=== PATIENT | female | born 1960 | race Caucasian/White ===

== ENCOUNTER 2019-01-31 14:27 | Inpatient (IN) | payer OTHER ==
[~2019-01-31] VITALS: Ht 165.1 cm; Wt 39.9 kg
[~2019-01-31 14:27] MED LIST: ACYCLOVIR 400400 M1 PO; ADULT LOW DOSE81 MG PO; ATENOLOL 50 MG50 M1 PO; AUGMENTIN 875875 MG PO; BACLOFEN 10MG T10 M1 PO; CALCIUM PO; DESYREL50 MG PO; DOXYCYCLINE 10100 MG PO; DUONEB 2.5-0.5 M3 ML INH; EVOXAC30 MG PO; FLONASE 0.05%50 MCG NASAL; GABAPENTIN600 MG PO; LEVAQUIN 500 M500 M1 PO; LEVAQUIN 500 M500 M2 PO; MIRALAX17 GM PO; MUCINEX TA600 MG/TA1 PO; MUCUS RELIEF400 MG PO; MULTI-VITAMIN1 EAC1 PO; NABUMETONE PO; NEURONTIN600 MG PO; NEXIUM40 MG PO; NICOTINE TRANSD21 M1 TRANSDERM; NORCO 10-325 T1 EACH PO; NORVASC 5 MG TAB5 MG PO; NORVASC2.5 MG PO; PAROXETINE HCL20 MG PO; PREDNISONE 10 M10 MG PO; PREDNISONE 20 M20 M1 PO; PREDNISONE 20 M20 MG PO; PREDNISONE50 MG PO; PREMARIN0.625 MG PO; PRILOSEC 20 MG20 MG PO; PRILOSEC20 MG PO; PROAIR RESPICL90 MCG IH; PROVENTIL HFA6.7 G1 INH; QUININE PO; SPIRIVA INH; SYMBICORT160 MCG/4. INH; TESSALON PERLE100 MG PO; TRAZODONE HCL100 MG PO; TRIAMTERENE-HC1 EAC1 PO; VENTOLIN HFA 1818 GM INH; VITAMIN B-12500 MC5 PO; VITAMIN B12 5500 MC1 PO; VITAMIN D1000 UNI1 PO; VITAMIN E400 UNI1 PO; VITAMINC500 PO; [UNRECOGNIZED DRUG - OTHER] PO
[2019-01-31 15:32] VITALS: BP 141/63
[2019-01-31 16:28] LABS: HEMOGLOBIN 12.1 gm/dL (12.0-15.0); MCH 31.5 pg (26.0-34.0); MCHC 32.7 g/dL (28.0-37.0); MCV 96.1 fL (80.0-100.0); RBC 3.85 mil/uL (4.20-5.00); RDW 14.1 % (10.5-14.5); WBC 13.2 thou/uL (4.0-11.0)
[2019-01-31 16:42] LABS: ALBUMIN 3.2 g/dL (3.4-5.0); CALCIUM 9.5 mg/dL (8.5-10.1); CREATININE 0.7 mg/dL (0.6-1.0); POTASSIUM 3.9 mmol/L (3.5-5.1); TOTAL BILIRUBIN 0.4 mg/dL (<0.1-1.0); TOTAL PROTEIN 7.6 g/dL (6.4-8.2)
[2019-01-31 16:42] LABS: BE(vivo) 2.3 mmol/L (-2 to +3); HCO3 26.5 mmol/L (22.0-26.0); PCO2 39.7 mmHg (35.0-45.0); PO2 71.9 mmHg (80.0-100.0); pH 7.443 (7.360-7.450); sO2 95.1 % (92.0-98.0)
--- NOTE | 2019-01-31 18:19 | NUR ---
[age] YEAR OLD FEMALE DIRECT ADMIT FROM DR. GODOY DUE TO INSREASE SOB FOR THE PAST WEEK. PT ALERT AND ORIENTED TIMES FOUR. VSS, 98%3L, SR ON TELE. PT DENIES PAIN DURING ASMISSION ASSESSMENT. PT UP WITH STANDBY ASSIST. DAUGHTER AT BEDSIDE. WILL CONTINUE TO MONITOR.
[2019-01-31 20:34] VITALS: BP 122/65
--- NOTE | 2019-02-01 04:04 | NUR ---
Patient making slow progress towards outcome goals. Oxygenation optimal with 3L NC (patients baseline at home). Cough non productive. Up to BSC x 1 assist. Chronic pain r/t neuropathy, Hydrocodone with some relief. Low fall risks, calls out appropriate for needs. Refused SCD's on Lovenox.
[2019-02-01 04:29] VITALS: BP 132/73
[2019-02-01 08:17] VITALS: BP 121/66
--- NOTE | 2019-02-01 10:06 | H ---
[facility] [place] [place] [address] HISTORY AND PHYSICAL Name: BHARATHI HUSSEIN Room #: 356-P ADM IN M.R.#: [id number] Admission: 01/31/19 Attend Phys: Jayshree Dwyer Discharge: Date of : 60 Report #: [id number] THIS REPORT FOR: //name// CC: Brain Nettles DATE OF SERVICE: 01/31/2019 ATTENDING: Dr. Nettles. CHIEF COMPLAINT: Shortness of breath. HISTORY OF PRESENT ILLNESS: The patient is a 58-year-old female with a history of O2 and steroid dependent COPD, who was admitted through the office today with progressive shortness of breath. She said for the last week to 10 days she has had increasing shortness of breath, is not improved with additional nebulized treatment. She has had a coarse cough at times, but has been nonproductive of sputum. She denies any fever or chills. She received a flu shot 2 weeks ago and had some myalgias and malaise from that, but that seemed to pass, but now has had progressive shortness of breath. PAST MEDICAL HISTORY: COPD, polyneuropathy, hypertension. PAST SURGICAL HISTORY: Unknown. FAMILY HISTORY: Noncontributory. SOCIAL HISTORY: A 89-rjce-xhox history of smoking, but quit. ALLERGIES: None. MEDICATIONS: DuoNeb, Norvasc, aspirin, hydrocodone, gabapentin, trazodone, Symbicort, Mucinex, Flonase, Nexium, prednisone, atenolol, baclofen, multivitamin. REVIEW OF SYSTEMS: She denies any headache, chest pain, abdominal pain, fever, chills, nausea, vomiting, diarrhea, constipation, dysuria, syncope. OBJECTIVE: VITAL SIGNS: Per the nursing note include temperature 36.9, pulse 92, respirations 24, blood pressure 141/63, O2 sat 99% on 3 liters portable oxygen with constant conserver. GENERAL: She is a thin female who is awake and alert, oriented to place and situation. HEAD AND NECK: Unremarkable. LUNGS: Distant breath sounds. She has a tight wheezing cough with some scattered rhonchi nonproductive. [facility] [address] [place] [address] HISTORY AND PHYSICAL Name: BHARATHI HUSSEIN Room #: 356-P ADM IN M.R.#: [id number] Admission: 01/31/19 Attend Phys: Jayshree Dwyer Discharge: Date of : 60 Report #: [id number] HEART: Regular, no murmur. ABDOMEN: Soft, normoactive bowel sounds. EXTREMITIES: No edema. NEUROLOGIC: She is oriented x 4. Cranial nerves, motor strength intact. She has muscle atrophy. ASSESSMENT: 1. Chronic obstructive pulmonary disease exacerbation. 2. Polyneuropathy on chronic pain medicine. 3. Hypertension. PLAN: Lab and x-ray have been ordered along with IV antibiotics, IV steroids, and nebulized treatments, respiratory therapy and I have asked Dr. Barakat to see her in consultation. Home medicines to continue and Lovenox for DVT prophylaxis. <ELECTRONICALLY SIGNED> By: Jose Martin Peterson MD 02/01/19 1006 [id number] Jose Martin Peterson MD /nt
[2019-02-01 16:03] VITALS: BP 125/62
--- NOTE | 2019-02-01 18:29 | NUR ---
Patient advised nursing her IV was hurting. Her IV site was assessed and her infusion rate was slowed. Patient reported the IV site hurt when flushed, not when fluids were infusing.
[2019-02-01 20:05] VITALS: BP 140/64
--- NOTE | 2019-02-02 04:23 | NUR ---
Patient making slow progress towards outcome goals. Better chronic pain control with Hydrocodone doses as per at home. Oxygenation optimal at 3L/NC. Cough still mostly non productive, on vest therapy. Low fall risks. Gait steady, uses call light appropriately for needs.
[2019-02-02 08:07] LABS: ANTI-DNA SCREEN <1 IU/mL (0-9); ANTI-RNP <0.2 AI (0.0-0.9)
[2019-02-02 08:42] VITALS: BP 127/65
[2019-02-02 12:32] VITALS: BP 140/73
--- NOTE | 2019-02-02 15:35 | NUR ---
ASSESSMENT: CM REVIEWED CHART AND MET WITH PATIENT AT THE BEDSIDE. PT WAS ADMITTED WITH COPD EXACERBATION. PT REPORTS SHE LIVES IN AN APT ALONE. PT REPORTS NO STEPS TO ENTER OR ONCE INSIDE. PT STATES SHE AMBULATES INDEPENDENTLY AND IS INDEPENDENT WITH ADLS. PT REPORTS SHE WEARS 3L CONTINUOUS OXYGEN AT HOME SUPPLIED THROUGH [facility] AND ALSO HAS A NEBULIZER. PT REPORTS HER DAUGHTER LIVES CLOSE AND IS SUPPORTIVE. PT REPORTS SHE HAS NOT HAD HH OR BEEN TO SNF. CM DISCUSSED ROLE. PT DOES NOT ANTICIPATE HAVING ANY NEEDS AT DISCHARGE. CM WILL CONTINUE TO FOLLOW TO ASSIST NEEDED.
[2019-02-02 16:06] VITALS: BP 130/68
--- NOTE | 2019-02-02 18:44 | NUR ---
PATIEN IS ALERT ORIENTED X4. DOES NOT SEEM TO BE IN DISTRESS. RESTING IN BED AT THIS TIME. NO COMPLAIN. WILL CONT WITH PLAN OF CARE.
[2019-02-02 19:35] VITALS: BP 132/62
[2019-02-03 02:53] VITALS: BP 143/64
--- NOTE | 2019-02-03 07:38 | NUR ---
PT MAKING PROGRESS TOWARDS GOALS. ON O2 AT 3L PER NC THROUGHOUT THE NIGHT. NO REPORTS OF ANY SOA WHILE AT REST. UP AD GRICELDA TO TOILET. NO REPORTS OF ANY SIGNIFICANT SOA WITH AMBULATION.
[2019-02-03 08:23] VITALS: BP 144/67
[2019-02-03 16:17] VITALS: BP 150/87
[2019-02-03 19:41] VITALS: BP 147/81
--- NOTE | 2019-02-03 20:20 | NUR ---
PATIENT MAKING PROGRESS TOWARDS GOALS/PLAN OF CARE OF MAINTAINING OXYGENATION, DECREASED ANXIETY, AND EASE WORK OF BREATHING.
--- NOTE | 2019-02-04 04:05 | NUR ---
PT WAS TRANSFERRED FROM AROUND 2300. AXOX4. GAIT STEADY WITH BATHROOM PREVILAGES. NO S/S ACUTE DISTRESS NOTED OR REPORTED AT THIS TIME. WILL CONT TO MONITOR FOR ANY CHANGES IN CONDITION.
[2019-02-04 04:50] VITALS: BP 141/85
[2019-02-04 07:41] VITALS: BP 132/66
[2019-02-04 11:26] VITALS: BP 129/65
[2019-02-04 15:29] VITALS: BP 146/72
--- NOTE | 2019-02-04 18:27 | NUR ---
ASSUMED CARE 0700, A/OX4, PAIN MANAGED WITH MEDICATIONS. BASELINE 3L OXYGEN, SMOKER, UP AB GRICELDA, CONTINUES ON BREATHING TREATMENTS. LIKELY TO DC TUESDAY OR TUESDAY. PROGRESSING TOWARDS GOALS.
[2019-02-04 19:09] VITALS: BP 150/74
[2019-02-05 03:29] VITALS: BP 135/53
--- NOTE | 2019-02-05 03:39 | NUR ---
PT ASSUMED AT 1910 WITH PT IN BED.PT IS A/O X4.PT COMPLAINT ON ITCHING AND ITCHING ON FEET WAS RELIEVED BY BARRIER CREAM.DR GODOY WAS PAGED WITH NO RESPONSE.PT REQUESTED TRAZODONE TO BE GIVEN AT 23:30 .PT IS ON O2/3L/NC.PT IS UP AD GRICELDA.CONTINUE POC TILL EOS.
[2019-02-05 20:20] VITALS: BP 146/86
--- NOTE | 2019-02-06 01:44 | NUR ---
PATIENT AOX4 MAKES NEEDS KNOWN. PATIENT IS UP AT GRICELDA. PATIENT AMBULATES TO THE BATHROOM WITH STEADY GAITS. PATIENT ON 3.0 L OF OXYGEN, NO SHORTNESS OF AIR OR DISTRESS NOTED AT THIS TIME. CALL LIGHT AND PERSONAL ITEMS WITHIN REACH. PAIN CONTROLLED THIS SHIFT. CALL LIGHT AND PERSONAL ITEMS WITHIN REACH.PATIENT IN BED ASLEEP AT THIS TIME BREATHING REGULAR AND UNLABOURED.
[2019-02-06 04:32] VITALS: BP 163/85
[2019-02-06 06:06] LABS: ADENOVIRUS Negative (Negative); INFLUENZA A Negative (Negative); INFLUENZA B Negative (Negative); METAPNEUMOVIRUS Negative (Negative); PARAINFLUENZA 1 Negative (Negative); PARAINFLUENZA 2 Negative (Negative); PARAINFLUENZA 3 Negative (Negative); RHINOVIRUS Negative (Negative); RSV A Negative (Negative); RSV B Negative (Negative)
[2019-02-06 07:14] LABS: HEMATOCRIT 36.2 % (37.0-47.0); MCH 31.6 pg (26.0-34.0); MCHC 33.3 g/dL (28.0-37.0); MCV 95.1 fL (80.0-100.0); PLATELET COUNT 408 thou/uL (150-400); RBC 3.81 mil/uL (4.20-5.00); RDW 14.2 % (10.5-14.5); WBC 12.9 thou/uL (4.0-11.0)
[2019-02-06 07:31] LABS: ALBUMIN 2.4 g/dL (3.4-5.0); CALCIUM 8.5 mg/dL (8.5-10.1); CREATININE 0.7 mg/dL (0.6-1.0); POTASSIUM 3.1 mmol/L (3.5-5.1); TOTAL BILIRUBIN 0.2 mg/dL (<0.1-1.0); TOTAL PROTEIN 5.7 g/dL (6.4-8.2)
[2019-02-06 07:51] VITALS: BP 143/72
[2019-02-06 08:27] LABS: BE(vivo) 5.1 mmol/L (-2 to +3); HCO3 30.8 mmol/L (22.0-26.0); PCO2 49.7 mmHg (35.0-45.0); PO2 109.7 mmHg (80.0-100.0)
[2019-02-06 09:20] LABS: ABSOLUTE NEUTROPHILS 9.9 thou/uL (1.4-8.2); PLATELET ESTIMATE NORMAL
[2019-02-06 09:58] VITALS: BP 143/72
--- NOTE | 2019-02-06 10:52 | NUR ---
CALLED DR. SPARROW OFFICE AND LEFT MESSAGE WITH BALDEV AT 1051 ABOUT HIGH LAB VALUE
--- NOTE | 2019-02-06 11:12 | NUR ---
INFORMED ABOUT HIGH LAB VALUES AND NEW CONFUSION AT 1114. HE RESPONDED HE WILL CHECK ON HER LATER WHEN HE ROUNDS
[2019-02-06] MEDS ORDERED: MUCINEX600 MG PO (13:18)
[2019-02-06] MEDS ORDERED: PREDNISONE 10 M10 M1 PO (13:20)
[2019-02-06] MEDS ORDERED: CEFDINIR300 MG PO (13:20)
[2019-02-06] MEDS ORDERED: ATIVAN0.5 M1 PO (13:21)
[2019-02-06 14:58] VITALS: BP 145/72
--- NOTE | 2019-02-06 16:21 | NUR ---
PHYSICAIN INDICATED THAT PT IS MEDICALLY STABLE TO DC HOME WITH NO NEEDS THIS DAY. NO OTHER CM INTERVENTION INDICATED. CASE CLOSED.
[2019-02-06 19:06] VITALS: BP 145/72
--- NOTE | 2019-02-06 20:22 | NUR ---
PT DEPARTED FROM ROOM 459. DTR P/U. IV REMOVED. ALL QUESTIONS ANSWERED AND ALL BELONGINGS SENT WITH THE PT. PORTABLE O2 MACHINE WAS BROUGHT IN WITH THE DTR. NO S/S ACUTE DISTRESS NOTED OR REPORTED AT THIS TIME. WILL CONT TO MONITOR FOR ANY CHANGES IN CONDITION.
[2019-02-07] MEDS ORDERED: BACLOFEN 10MG T10 MG PO (17:37)
--- NOTE | 2019-02-19 17:20 | PFR/MVV ---
[facility] [place] [place] [address] PULMONARY FUNCTION MVV/REPORT Name: JOVITABHARATHI MCDOWELL Room #: 459-P [facility] IN M.R.#: [id number] Admission: 01/31/19 Attend Phys: Brain Nettles MD Discharge: 02/06/19 Date of : 60 Report #: [id number] THIS REPORT FOR: //name// >> SPIROMETRY: (BTPS) Height: 65 in cm Weight: 88 lbs kg Exam Date: 02/02/19 PRE-RX POST-RX PRED BEST %PRED BEST %PRED %CHG FVC LITERS . 3.48 . 2.64 . 76 . 2.41 . 69 . -9 FEV1 LITERS . 2.77 . 0.77 . 29 . 0.75 . 28 . -3 FEV1/FVC % . 78 . 29 . 37 . 31 . 40 . 7 KSQ07-10% L/Sec . 2.49 . 0.25 . 10 . 0.28 . 1 . 12 PEF L/SEC . 6.5 . 1.70 . 26 . 1.64 . 25 . -4 FEF50/FIF50 UNITLESS . . . . . . MVV L/Min . . . f 1/Min . . . >> LUNG VOLUMES: (BTPS) PRE-RX POST-RX PRED AVG %PRED AVG %PRED %CHG VC Liters . . . . . . TLC Liters . . . . . . RV Liters . . . . . . RV/TLC % . . . . . . FRC PL Liters . . . . . . FRC N2 Liters . . . . . . ERV Liters . . . . . . IC Liters . . . . . . >> DIFFUSION: DLCO ml/Min/mmHg . . . . . . DL Dotty ml/Min/mmHg . . . . . . DLCO/VA ml/Min/mmHg . . . . . . VA Liters . . . . . . COMMENTS: COMMENTS: >> RESISTANCE: [facility] [address] [place] [address] PULMONARY FUNCTION MVV/REPORT Name: BHARATHI HUSSEIN Room #: 459-P DIS IN M.R.#: [id number] Admission: 01/31/19 Attend Phys: Brain Nettles MD Discharge: 02/06/19 Date of : 60 Report #: [id number] PRE-RX PRED AVG %PRED Raw Total cmH20/L/Sec . . . Raw Insp cmH20/L/Sec . . . Raw Exp cmH20/L/Sec . . . Raw cmH20/L/Sec . . . Gaw L/Sec/cmH20 . . . sRaw cmH20 Sec . . . sGaw l/cmH20 Sec . . . Vtq Liters . . . # = OUTSIDE 95% CONFIDENCE INTERVAL CALIBRATION: PRED: 3.00 ACTUAL: EXP 3.01 INSP 3.02 [facility]-06 [facility]-05 N-1804-4 >> INTERPRETATION/IMPRESSION: CC: BRAIN Nettles SPIROMETRIC EXAMINATION Spirometric examination revealed very severe airflow obstruction. Clinical correlation is recommended. <ELECTRONICALLY SIGNED> By: Michael Barakat MD 02/19/19 1720 Michael Barakat MD /nt
== END 2019-02-06 20:24 | disposition home or self-care (01) | DRG 189 ==
LOC: 3W 14:27 → 4W 14:27 → 3W 15:31 → 4W 02-03 22:44
PROVIDERS: Internal Medicine Geriatric Medicine; Pediatrics; ADMIT Internal Medicine
DX: J96.21 Acute and chronic respiratory failure with hypoxia (principal); Z68.1 Body mass index [BMI] 19.9 or less, adult; J44.1 Chronic obstructive pulmonary disease with (acute) exacerbation; J96.22 Acute and chronic respiratory failure with hypercapnia; I10 Essential (primary) hypertension; G62.9 Polyneuropathy, unspecified; Z60.2 Problems related to living alone; R63.4 Abnormal weight loss; G72.9 Myopathy, unspecified; J43.9 Emphysema, unspecified; J84.10 Pulmonary fibrosis, unspecified; F41.9 Anxiety disorder, unspecified; Z99.81 Dependence on supplemental oxygen; Z79.51 Long term (current) use of inhaled steroids; Z87.891 Personal history of nicotine dependence; Z79.899 Other long term (current) drug therapy; Z79.82 Long term (current) use of aspirin; Z23 Encounter for immunization
CPT/HCPCS: 10047; 10879

== ENCOUNTER 2019-02-07 12:15 | Inpatient (IN) | payer OTHER ==
[~2019-02-07] VITALS: Ht 165.1 cm; Wt 42.2 kg
[~2019-02-07 12:15] MED LIST changes: +ATIVAN0.5 M1 PO; +CEFDINIR300 MG PO; +MUCINEX600 MG PO; +PREDNISONE 10 M10 M1 PO
[2019-02-07 13:26] VITALS: BP 158/93
[2019-02-07 13:49] LABS: HEMATOCRIT 39.8 % (37.0-47.0); HEMOGLOBIN 13.2 gm/dL (12.0-15.0); MCH 31.5 pg (26.0-34.0); MCHC 33.3 g/dL (28.0-37.0); MCV 94.6 fL (80.0-100.0); PLATELET COUNT 382 thou/uL (150-400); RDW 14.1 % (10.5-14.5); WBC 13.4 thou/uL (4.0-11.0)
[2019-02-07 13:58] LABS: ANION GAP 4 mmol/L (7-16); BUN 14 mg/dL (7-18); CALCIUM 8.6 mg/dL (8.5-10.1); CHLORIDE 94 mmol/L (98-107); CO2 34 mmol/L (21-32); CREATININE 0.6 mg/dL (0.6-1.0); GLUCOSE 89 mg/dL (74-106); POTASSIUM 3.2 mmol/L (3.5-5.1); SODIUM 132 mmol/L (136-145)
[2019-02-07 14:09] LABS: ALBUMIN 3.2 g/dL (3.4-5.0); SGOT 27 U/L (15-37); SGPT 93 U/L (30-65); TOTAL BILIRUBIN 0.4 mg/dL (<0.1-1.0); TOTAL PROTEIN 6.8 g/dL (6.4-8.2); TROPONIN-I <0.06 ng/mL (<0.06)
[2019-02-07 14:17] LABS: ABSOLUTE NEUTROPHILS 9.5 thou/uL (1.4-8.2)
[2019-02-07 14:48] LABS: BE(vivo) 4.1 mmol/L (-2 to +3); HCO3 28.4 mmol/L (22.0-26.0); PCO2 41.6 mmHg (35.0-45.0); PO2 76.7 mmHg (80.0-100.0); pH 7.452 (7.360-7.450); sO2 95.9 % (92.0-98.0)
[2019-02-07 16:23] VITALS: BP 161/89
[2019-02-07 16:27] VITALS: BP 161/89
[2019-02-07 17:01] VITALS: BP 147/91
[2019-02-07] MEDS ORDERED: BACLOFEN 10MG T10 MG PO (17:37)
--- NOTE | 2019-02-07 18:44 | NUR ---
ADMITTED PATIENT TO FLOOR AROUND APPROXIMATELY 1715. PATIENT ADMITTED WITH COPD EXACERBATION. CURRENTLY ON 3 L NC, WHICH IS HER BASELINE. PATIENT HAD JUST BEEN DISCHARGED FROM OUR FACILITY BUT RETURNED DUE TO SHORTNESS OF BREATH. ORDERS RECIEVED FROM PHYSICIAN AND PASSED ON TO [employer] NURSE. PATIENT EDUCATED ON FALL PRECAUTIONS AND CALL LIGHT USAGE. VSS. CONTINUING TO MONITOR.
[2019-02-07 19:30] VITALS: BP 139/91
[2019-02-08 04:00] VITALS: BP 125/70
--- NOTE | 2019-02-08 04:19 | NUR ---
PATIENT WAS A NEW ADMIT TO THE UNIT YESTERDAY. SHE IS ADVANCING SLOWLY IN HER CARE PLAN. VITAL SIGNS STABLE WITH PATIENT HAVING NO COMPLAINTS OF NAUSEA. PATIENT DID COMPLAIN OF CHRONIC PAIN IN FEET AND HANDS WHICH WAS TREATED APPROPRIATELY THROUGH MEDICATION. FULLY ORIENTED, PATIENT IS ABLE TO CALL APPROPRIATELY FOR NEEDS AND PARTICIPATE IN CARE. BREATHING STABLE ON HOME DOSE OXYGEN EVIDENCE BY ASSESSMENT AND SPOT OXYGENATION CHECKS. UP MULTIPLE TIMES TO BATHROOM WITH ASSISTANCE INCIDENT FREE. PATIENT IS EXPERIENCING DIARRHEA. CONTINUE PLAN OF CARE.
[2019-02-08 05:20] LABS: ABSOLUTE NEUTROPHILS 8.4 thou/uL (1.4-8.2); BASOPHILS 0.2 % (0.0-2.0); HEMATOCRIT 39.8 % (37.0-47.0); LYMPHOCYTES 6.5 % (24.0-44.0); MCH 31.3 pg (26.0-34.0); MCHC 32.6 g/dL (28.0-37.0); MCV 95.9 fL (80.0-100.0); MONOCYTES 3.2 % (1.0-8.0); PLATELET COUNT 363 thou/uL (150-400); POLYS 90.1 % (36.0-66.0); RBC 4.15 mil/uL (4.20-5.00); RDW 14.3 % (10.5-14.5); WBC 9.3 thou/uL (4.0-11.0)
[2019-02-08 05:36] LABS: CALCIUM 8.7 mg/dL (8.5-10.1); CREATININE 0.5 mg/dL (0.6-1.0); TOTAL BILIRUBIN 0.5 mg/dL (<0.1-1.0); TOTAL PROTEIN 6.1 g/dL (6.4-8.2)
[2019-02-08 05:49] LABS: POTASSIUM 4.4 mmol/L (3.5-5.1)
[2019-02-08 07:14] VITALS: BP 143/79
--- NOTE | 2019-02-08 07:49 | EKG ---
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 : 1960 Requested By: Radha Ramirez Order Number: [id number] MD: Devante Ang Measurements Intervals [place] Rate: 66 P: 82 SC: 112 QRS: 69 QRSD: 91 T: 64 QT: 416 QTc: 436 Interpretive Statements Sinus rhythm Borderline short SC interval Probable left atrial enlargement Minimal ST depression, inferior leads Baseline wander in lead(s) II,III,aVL,aVF Compared to ECG 02/02/2018 13:16:26 No significant changes Electronically Signed On 02-08-2019 7:49:33 CDT by Devante Ang [email or web address] <ELECTRONICALLY SIGNED> By: Devante Ang MD 02/08/19 0749 1449 1449 Devante Ang MD /EPI
[2019-02-08 08:40] LABS: BE(vivo) 3.3 mmol/L (-2 to +3); HCO3 27.3 mmol/L (22.0-26.0); PCO2 39.7 mmHg (35.0-45.0); PO2 94.8 mmHg (80.0-100.0); pH 7.456 (7.360-7.450); sO2 97.6 % (92.0-98.0)
[2019-02-08 10:53] VITALS: BP 153/77
--- NOTE | 2019-02-08 11:00 | NUR ---
ID nurse here. states pt already had measles and she is taking her out of airbourne precautions. Dr. Doe student also states pt does not need negative airflow. pt now in contact precautions as well.
--- NOTE | 2019-02-08 11:16 | D ---
[facility] [place] [address] [place] [address] DISCHARGE SUMMARY Name: BHARATHI HUSSEIN Room #: 358-P ADM IN M.R.#: [id number] Admission: 02/07/19 Attend Phys: Jose Martin Peterson MD Discharge: Date of : 60 Report #: [id number] THIS REPORT FOR: //name// CC: Brain Ramirez FINAL DIAGNOSIS: Chronic obstructive pulmonary disease exacerbation. HOSPITAL COURSE: The patient was admitted with shortness of breath. She was diagnosed and treated for a COPD exacerbation. Dr. Weston saw her in consultation. She was treated with nebulized, inhaled treatments, flutter valve, IV steroids, and IV antibiotics. She made slow and steady progress during the course of her stay. She ultimately was weaned back to her baseline 3 liters nasal cannula oxygen. She had no other interval complications and her other home medications for her chronic pain condition and neuropathy were continued. DISPOSITION: To be discharged to home with oxygen at 3 liters. Resume all home medications. Prednisone 40 mg twice a day with a taper, Mucinex, Omnicef 300 mg b.i.d. for a week, and follow up with Dr. Netltes in 1 week. <ELECTRONICALLY SIGNED> By: Jose Martin Peterson MD 02/08/19 1116 1313 1319 Jose Martin Peterson MD /nt
--- NOTE | 2019-02-08 12:59 | H ---
[facility] [place] [address] [place] [address] HISTORY AND PHYSICAL Name: BHARATHI HUSSEIN Room #: 358-P ADM IN M.R.#: [id number] Admission: 02/07/19 Attend Phys: Jose Martin Peterson MD Discharge: Date of : 60 Report #: [id number] THIS REPORT FOR: //name// CC: Brain Peterson CHIEF COMPLAINT: Shortness of breath. HISTORY OF PRESENT ILLNESS: The patient is a 58-year-old female with a history of COPD, who was readmitted to the hospital after failing at home due to shortness of breath. She was hospitalized for about a week for COPD exacerbation with steroids, antibiotics and respiratory treatments. She was just discharged home the other night, but called yesterday morning things she could not breathe with short of breath and was redirected to the Emergency Room. PAST MEDICAL HISTORY: COPD, peripheral neuropathy, chronic pain, cor pulmonale, herpes simplex. PAST SURGICAL HISTORY: . FAMILY HISTORY: Noncontributory. SOCIAL HISTORY: She was living at home. She got a 44-phka-joat history of smoking. Denies chronic alcohol use. ALLERGIES: None. MEDICATIONS: Mucinex, Omnicef, Nexium, DuoNeb, Norvasc, baclofen, trazodone, Neurontin, Symbicort, albuterol, atenolol, multivitamin, aspirin. REVIEW OF SYSTEMS: She complains of shortness of breath and nonproductive cough. No headache, chest pain, abdominal pain, nausea, vomiting, diarrhea, constipation, dysuria, syncope. OBJECTIVE: VITAL SIGNS: Temperature 36.7, pulse 89, respirations 16, blood pressure 153/77, O2 sat 99% on 3 liters. GENERAL: She is awake and alert, in no distress. HEAD AND NECK: Unremarkable. LUNGS: Have rhonchi throughout. HEART: Regular. ABDOMEN: Soft, normoactive bowel sounds. EXTREMITIES: No edema. NEUROLOGIC: Motor strength 3-4/5 throughout. She has muscle atrophy and wasting throughout. LABORATORY REVIEW: A pH 7.45, pCO2 of 39, pO2 of 94 on 3 liters. White count [facility] [address] [place] [address] HISTORY AND PHYSICAL Name: BHARATHI HUSSEIN Room #: 358-P ADM IN M.R.#: [id number] Admission: 02/07/19 Attend Phys: Jose Martin Peterson MD Discharge: Date of : 60 Report #: [id number] normal. Chemistry unremarkable. ASSESSMENT: 1. Chronic obstructive pulmonary disease exacerbation. 2. Hypertension. 3. Peripheral neuropathy. 4. Chronic pain syndrome. PLAN: I will resume IV treatment and have the pulmonary team assessed her and she may need prolonged post-hospital stay for IV therapy and pulmonary toilet to stabilize her symptoms since she failed at home. <ELECTRONICALLY SIGNED> By: Jose Martin Peterson MD 02/08/19 1259 1119 1135 Jose Martin Peterson MD /madhuri
--- NOTE | 2019-02-08 13:56 | NUR ---
INITIAL ASSESSMENT: MELISSA reviewed chart and spoke with nursing and attending physician. Pt was admitted from home due to COPD exacerbation. Pt was recently hospitalized at [facility] and discharged home on 02/06. Requested for eval for [facility] by attending physician. MELISSA met with pt at bedside. Introduced role of SW. Pt is alert/orientated x 4. Pt reports she lives at home alone. Prior to admission, pt was independent with ADLs. Pt has a cane and walker at home, but does not use them. Pt has home O2 in place through [facility]. Pt is normally on 3L continuously. No hx of services or post-acute placement. Pt's PCP is Dr. Enrique Nettles. SW discussed post-acute placement at [facility] for continued medical mgmt. Pt is agreeable with evaluation. train planner to fax referral to [facility]. SW notified [facility] liaison of new referral. MELISSA is following to assist as needed with discharge planning.
--- NOTE | 2019-02-08 14:21 | NUR ---
DISCHARGE PLANNING. LTAC RECOMMENDED FOR PATIENT AT DISCHARGE. REFERRAL FAXED TO [facility] LIA[facility] FOR PATIENTS DISCHARGE NEEDS. CALL PLACED TO KAYLEE TO NOTIFY. KAYLEE TO REVIEW REFERRAL AND CONTACT CM ONCE REVIEW COMPLETED. FOLLOWING.
[2019-02-08 16:02] VITALS: BP 157/70
[2019-02-08 19:07] VITALS: BP 135/71
[2019-02-09 03:00] VITALS: BP 142/82
--- NOTE | 2019-02-09 04:16 | NUR ---
ASSUMED CARE OF PATIENT AT 1900. VSS, AFEBRILE. C/O CHRONIC PAIN. SCHEDULED MEDS GIVEN, RESTING QUIETLY THROUGH THE NIGHT. CALLS OUT APPROPRIATELY. WORKING TOWARDS POC GOALS.
[2019-02-09 11:12] VITALS: BP 145/77
[2019-02-09] MEDS ORDERED: ENOXAPARIN30 MG/0.1 SUBQ (12:00)
[2019-02-09] MEDS ORDERED: ROCEPHIN 11 GM/1001 IV (12:00)
[2019-02-09] MEDS ORDERED: PULMICORT0.5 MG/21 INH (12:00)
[2019-02-09] MEDS ORDERED: MUCINEX600 MG PO (12:00)
[2019-02-09] MEDS ORDERED: SOLU-MEDRO40 MG/1 M2 IV (12:00)
[2019-02-09] MEDS ORDERED: AZITHROMYCIN500 MG PO (12:00)
[2019-02-09] MEDS ORDERED: ACETYLCYST200 MG/1 M INH (12:00)
[2019-02-09] MEDS ORDERED: NORCO 10-325 T1 EACH PO (12:00)
--- NOTE | 2019-02-09 14:27 | NUR ---
MELISSA reviewed chart and spoke with nursing and attending physician. [facility] is able to accept pt tomorrow. Discharge orders/summary completed today with anticipation of discharge tomorrow. production planner scheduler to fax to [facility]. MELISSA updated [facility] liaison, who confirmed they are able to accept pt tomorrow. Pt is able to be transported via w/c with O2. MELISSA met with pt, dtr and [id number] at bedside to discuss discharge plan. All are aware and agreeable with discharge plan. SW answered questions about eventual discharge needs. Pt's dtr has been looking for a new place for pt to live--a [facility]. Pt has [place]-Medicaid as a secondary insurance and is interested in having her dtr be her paid caregiver. MELISSA explained that pt will need to be evaluated to determine her needs. Pt and family verbalized understanding. Chart copy ordered. Nursing will need to call report prior to discharge. SW is available to assist should needs arise.
--- NOTE | 2019-02-09 14:31 | NUR ---
ORDERS RECEIVED FOR EVAL AND TREAT. SPOKE TO Pt WHO STATES SHE IS GETTING UP ON HER OWN WITHOUT DIFFICULTY AND DENIES ANY ISSUES WITH STRENGTH, BALANCE OR MOBILITY. Pt DECLINING FORMAL P.T. EVAL AT THIS TIME. Pt TENTATIVELY DISCHARGING TOMORROW TO LTAC.
[2019-02-09 15:21] VITALS: BP 164/81
--- NOTE | 2019-02-09 15:39 | NUR ---
Assumed care approx. 0700 this AM. ON 3LNC (BASELINE). Pt still on IV steroids and abx. Family at bedside this afternoon with questions and concerns-this RN spoke with family as did case managment. Plans for patient to go to [facility] tomorrow. Number for report given to this RN. Will pass off to restaurant shift supervisor RN. Patient progressing towards plan of care.
[2019-02-09 19:40] VITALS: BP 160/85
[2019-02-10 04:15] VITALS: BP 160/85
--- NOTE | 2019-02-10 06:20 | NUR ---
Pt. slept fair during the night. Scheduled pain med given with good relief. O2 at 3L/NC and verbalized shortness of breath with exertion. Up ad teresita in room with steady gait. Progressing towards care plan goals.
[2019-02-10 07:23] VITALS: BP 160/88
[2019-02-10 11:15] VITALS: BP 168/104
--- NOTE | 2019-02-10 13:29 | NUR ---
PATIENT DISCHARGED THIS TIME TO [facility]. SHE IS ALERT ORIENTED X4. HAD A SHOWER. CONT ON OXYGEN AND O2 SATS REMAINED ABOVE 90%.
[2019-02-11 22:06] LABS: ADENOVIRUS Negative (Negative); INFLUENZA A Negative (Negative); INFLUENZA B Negative (Negative); METAPNEUMOVIRUS Negative (Negative); PARAINFLUENZA 1 Negative (Negative); PARAINFLUENZA 2 Negative (Negative); PARAINFLUENZA 3 Negative (Negative); RHINOVIRUS Negative (Negative); RSV A Negative (Negative); RSV B Negative (Negative)
--- NOTE | 2019-02-13 12:55 | D ---
[facility] [place] [address] [place] [address] DISCHARGE SUMMARY Name: BHARATHI HUSSEIN Room #: 358-P [facility] IN M.R.#: [id number] Admission: 02/07/19 Attend Phys: Jose Martin Peterson MD Discharge: 02/10/19 Date of : 60 Report #: [id number] THIS REPORT FOR: //name// CC: Brain Peterson DATE OF SERVICE: 02/10/2019 FINAL DIAGNOSIS: Chronic obstructive pulmonary disease exacerbation. HOSPITAL COURSE: The patient was admitted with shortness of breath. She was continued on COPD exacerbation treatment with steroids, antibiotics, nebulized treatments and pulmonary assessment. Viral respiratory panel was sent off, was negative including flu A and B. She was medically stabilized and planned for LTAC level of care as she had failed outpatient treatment. DISPOSITION: She will be transferred to [facility] facility under the care of Dr. Nettles. I have signed and prepared all of her transfer orders. Diet and activity as tolerated. She will continue pulmonary care. <ELECTRONICALLY SIGNED> By: Jose Martin Peterson MD 02/13/19 1255 1244 1306 Jose Martin Peterson MD /nt
--- NOTE | 2019-02-19 17:20 | PFR/MVV ---
[facility] [place] [place] [address] PULMONARY FUNCTION MVV/REPORT Name: BHARATHI HUSSEIN Room #: 358-P [facility] IN M.R.#: [id number] Admission: 02/07/19 Attend Phys: Jose Martin Peterson MD Discharge: 02/10/19 Date of : 60 Report #: [id number] THIS REPORT FOR: //name// >> SPIROMETRY: (BTPS) Height: 65 in cm Weight: 88 lbs kg Exam Date: 02/08/19 PRE-RX POST-RX PRED BEST %PRED BEST %PRED %CHG FVC LITERS . 3.24 . 3.07 . 9 . 2.99 . 92 . -3 FEV1 LITERS . 2.51 . 0.84 . 33 . 0.92 . 37 . 10 FEV1/FVC % . 78 . 27 . 3 . 31 . 39 . 12 AUD30-48% L/Sec . 2.38 . 0.24 . 10 . 0.31 . 13 . 29 PEF L/SEC . 6.24 . 2.09 . 33 . 1.58 . 25 . -24 FEF50/FIF50 UNITLESS . . . . . . MVV L/Min . . . f 1/Min . . . >> LUNG VOLUMES: (BTPS) PRE-RX POST-RX PRED AVG %PRED AVG %PRED %CHG VC Liters . . . . . . TLC Liters . . . . . . RV Liters . . . . . . RV/TLC % . . . . . . FRC PL Liters . . . . . . FRC N2 Liters . . . . . . ERV Liters . . . . . . IC Liters . . . . . . >> DIFFUSION: DLCO ml/Min/mmHg . . . . . . DL Dotty ml/Min/mmHg . . . . . . DLCO/VA ml/Min/mmHg . . . . . . VA Liters . . . . . . COMMENTS: COMMENTS: >> RESISTANCE: [facility] [address] [place] [address] PULMONARY FUNCTION MVV/REPORT Name: BHARATHI HUSSEIN Room #: 358-P DIS IN M.R.#: [id number] Admission: 02/07/19 Attend Phys: Jose Martin Peterson MD Discharge: 02/10/19 Date of : 60 Report #: [id number] PRE-RX PRED AVG %PRED Raw Total cmH20/L/Sec . . . Raw Insp cmH20/L/Sec . . . Raw Exp cmH20/L/Sec . . . Raw cmH20/L/Sec . . . Gaw L/Sec/cmH20 . . . sRaw cmH20 Sec . . . sGaw l/cmH20 Sec . . . Vtq Liters . . . # = OUTSIDE 95% CONFIDENCE INTERVAL CALIBRATION: PRED: 3.00 ACTUAL: EXP 3.01 INSP 3.02 [facility] [place] [address] N-1804-4 >> INTERPRETATION/IMPRESSION: CC: Brain Peterson SPIROMETRIC EXAMINATION Spirometry revealed very severe airflow obstruction. Clinical correlation is recommended. <ELECTRONICALLY SIGNED> By: Michael Barakat MD 02/19/19 1720 Michael Barakat MD /nt
== END 2019-02-10 13:25 | DRG 193 ==
LOC: ER 12:15 → EROBS 14:55 → 3W 14:55
PROVIDERS: Nurse Practitioner Family; Pediatrics; ADMIT Internal Medicine Geriatric Medicine
DX: J18.9 Pneumonia, unspecified organism (principal); J96.21 Acute and chronic respiratory failure with hypoxia; J96.22 Acute and chronic respiratory failure with hypercapnia; J44.0 Chronic obstructive pulmonary disease with (acute) lower respiratory infection; E87.1 Hypo-osmolality and hyponatremia; J44.1 Chronic obstructive pulmonary disease with (acute) exacerbation; E87.6 Hypokalemia; G62.9 Polyneuropathy, unspecified; K21.9 Gastro-esophageal reflux disease without esophagitis; M81.0 Age-related osteoporosis without current pathological fracture; G89.4 Chronic pain syndrome; F32.9 Major depressive disorder, single episode, unspecified; I10 Essential (primary) hypertension; F41.9 Anxiety disorder, unspecified; Z87.81 Personal history of (healed) traumatic fracture; Z99.81 Dependence on supplemental oxygen; Z71.6 Tobacco abuse counseling
CPT/HCPCS: 10879